=== PATIENT | female | born 1940 | race Caucasian/White ===

== ENCOUNTER 2023-05-11 05:21 | Emergency (ER) | payer OTHER, SELFPAY ==
[2023-05-11] VITALS (9 sets, daily range): BP systolic 99–126; BP diastolic 52–70
--- NOTE | 2023-05-11 06:12 | ED.GENMED ---
History of Present Illness
General
Chief Complaint: Breathing Problem
Source: patient and ambulance crew
Time Seen by Provider: 05/11/23 06:04
Travel History
Have you had any contact with someone who has COVID-19?: No
Do you have any symptoms of coronavirus? Fever > 100 degrees, chills, cough, shortness of breath, sore throat, loss of taste or smell, muscle aches, or headache?: No
History of Present Illness
History of Present Illness:
83-year-old female presents to the emergency room complaining of shortness of breath. She apparently told staff at [facility] that she felt like she was dying due to shortness of breath. Patient had been admitted there on May 06 from
[facility] after an exacerbation of heart failure. [facility] notes indicate she supposed to follow-up as an outpatient for a TAVR evaluation. Patient has significant hearing impairment.
Phy Exam
Physical Exam
Physical Exam:
General: Awake, Alert, appears mildly short of breath
Vitals: unremarkable
Head: Atraumatic
Eyes: Pupils equal, EOMI
Throat: Airway intact, no exudates
Neck: Trachea midline
Lungs: Crackles bilateral lower lung shannon
Heart: Regular rate, no murmurs
Abd: Soft, Nontender, No pulsatile mass
Neuro: Nonfocal
Skin: Warm, dry, no rash
Extremities: pulses equal b/l, trace edema, erythema of legs bilaterally
Scores
Heart Failure Risk
Heart Failure Risk Score: Not Applicable
Course
Orders/Labs/Results
Orders:
Orders
05/11/23 05:38
EKG [Electrocardiogram (*1)] Urgent
Reason for Study: Shortness of Breath
05/11/23 05:39
EKG- Treatment ONCE
05/11/23 05:49
Complete Blood Count/With Diff Urgent
05/11/23 06:10
CR Chest - 2 Views Urgent
Comment:
Reason For Exam: sob
05/11/23 06:13
COVID-19 Antigen Urgent
Source: Nasal Swab
NT-proBNP Urgent
Influenza A+B Rapid Molecular Urgent
BARRY Source: Nasal Swab
Specimen Description:
05/11/23 06:29
Comprehensive Metabolic Panel Urgent
Abnormal Lab Results
05/11/23 05/11/23
05:49 06:29
RBC 4.04 L 10^6/uL
(4.20-5.40)
Hgb 11.6 L g/dL
(12.0-16.0)
Hct 35.7 L %
(37.0-47.0)
MCHC 32.5 L g/dL
(33.0-37.0)
RDW 15.9 H %
(11.5-14.5)
Abs Immat Gran (auto) 0.1 H 10^3/uL
(0-0.05)
Absolute Lymphs (auto) 1.0 L 10^3/uL
(1.2-3.4)
Immature Gran % 1.1 H %
(0-0.5)
Lymphocytes % 16.6 L %
(20.5-51.1)
Monocytes % 10.2 H %
(1.7-9.3)
Chloride 96 L mmol/L
(98-107)
Carbon Dioxide 32 H mmol/L
(22-30)
BUN 56 H mg/dl
(7-17)
Glucose 154 H mg/dl
(70-99)
05/11/23 05:49
05/11/23 06:29
Vital Signs
Initial and Last Documented VS:
Initial Vital Signs
BP
112/65
05/11/23 05:26
Last Documented Vital Signs
Temp Pulse Resp BP Pulse Ox
99.2 F 73 19 99/52 99
05/11/23 05:27 05/11/23 08:45 05/11/23 08:45 05/11/23 08:00 05/11/23 08:45
MDM/Problems Addressed
Differential Diagnosis Includes:
chf exacerbation, anemia, pneumonia
Chronic conditions affecting care:
Workup here is unremarkable. Chest x-ray does not show any acute abnormalities. Labs are unremarkable including a BNP which is quite low given her age and comorbidities. No indication for hospitalization. Patient will be discharged back to her
facility.
Chronic conditions affecting care: Other (CHF)
*Radiology
Radiology exam reviewed: preliminary read by ED provider (Personally reviewed the patient's chest x-ray see no acute disease)
*Pulse Oximetry
Patient hypoxic: no
*EKG
Interpretation: normal
Heart Rate: 79
Rate: normal
Rhythm: sinus
[place]: normal axis
Interval: normal interval
QRS Pattern: normal QRS
Ischemia: no ischemia
*[employer] Interpretation
Rate: normal
Interpretation: normal
Rhythm: sinus
*Critical Care Note
Total Time (30-74mins, 75-104mins- exclusive of procedures): Not Applicable
ED Attending Note
-
Portions of this chart may have been created with voice recognition software.� Occasional wrong word or��sound alike� substitutions may have occurred due to the inherent limitations of voice recognition software.
Discharge Plan
Departure
Patient Disposition: Penitentiary/SNF
Date of Disposition: 05/11/23
Time of Disposition: 07:58
Condition: Fair
Discharge Problem:
Dyspnea
Instructions: Shortness of Breath, Adult ED
Referrals:
Jose Ingram MD [Family Provider] -
Activity Restrictions/Additional Instructions:
No evidence for an exacerbation of heart failure.
Interventions
Interventions:
*Risk Screen - Suicide Last Done: 05/11/23 05:27
*General Assessment Last Done: 05/11/23 05:27
*Neglect/Abuse Screening Last Done: 05/11/23 05:27
ED- Fall Risk Assessment Last Done: 05/11/23 05:36
*ED COVID-19 Vaccine History Last Done: 05/11/23 05:27
ED- Cardiac Assessment Last Done: 05/11/23 05:36
ED- Pulmonary Assessment Last Done: 05/11/23 08:01
[2023-05-11 06:14] LABS: % Basophils 0.4 % (0-2); % Eosinophils 2.5 % (0-6); % Immature Granulocytes 1.1 % (0-0.5); % Lymphocytes 16.6 % (20.5-51.1); % Monocytes 10.2 % (1.7-9.3); % Neutrophils 69.2 % (42.2-75.2); Absolute Eosinophils 0.1 10^3/uL (0-0.7); Absolute Immature Granulocytes 0.1 10^3/uL (0-0.05); Absolute Monocytes 0.6 10^3/uL (0.1-0.6); Hematocrit 35.7 % (37.0-47.0); Hemoglobin 11.6 g/dL (12.0-16.0); Mean Corp Hgb Conc. 32.5 g/dL (33.0-37.0); Mean Corpuscular Hgb 28.7 pg (27.0-31.0); Mean Corpuscular Volume 88.4 fL (81.0-99.0); Mean Platelet Volume 9.7 fL (7.4-10.4); Nucleated Red Blood Cells % 0 %; Platelet Count 169 10^3/uL (130-400); Red Blood Cell Count 4.04 10^6/uL (4.20-5.40); Red Cell Dist. Width 15.9 % (11.5-14.5); White Blood Cell Count 5.7 10^3/uL (4.8-10.8)
[2023-05-11 06:44] LABS: COVID-19 Antigen Negative (Negative)
[2023-05-11 06:53] LABS: NT-proBNP 759 pg/ml
[2023-05-11 07:07] LABS: ALT (SGPT) 27 U/L (0-35); AST (SGOT) 25 U/L (14-36); Albumin 3.5 g/dl (3.5-5.0); Alkaline Phosphatase 91 U/L (38-126); Blood Urea Nitrogen 56 mg/dl (7-17); Calcium 8.9 mg/dl (8.4-10.2); Carbon Dioxide 32 mmol/L (22-30); Chloride 96 mmol/L (98-107); Estimated Creatinine Clearance 58 ml/min; Glucose 154 mg/dl (70-99); Potassium 3.8 mmol/L (3.5-5.1); Sodium 136 mmol/L (135-145); Total Bilirubin 0.6 mg/dl (0.2-1.3); Total Protein 6.5 g/dl (6.3-8.2); eGFR > 60.00
== END 2023-05-11 15:56 ==
LOC: EMR 05:21
PROVIDERS: Student in an Organized Health Care Education/Training Program; EMERGENCY PHYSICIAN Emergency Medicine; FAMILY PHYSICIAN Internal Medicine
DX: R06.00 Dyspnea, unspecified (principal); R06.02 Shortness of breath; I50.9 Heart failure, unspecified; Z11.52 Encounter for screening for COVID-19
CPT/HCPCS: 99285; 71046; 80053; 83880; 85025; 87502; 87811; 93005